=== PATIENT | female | born 1955 | race Caucasian/White ===

== ENCOUNTER 2018-11-28 00:49 | Outpatient (CLI) | payer MEDICARE, BC, SELFPAY ==
--- NOTE | 2018-11-28 12:34 | DI.RAD_ITS ---
SYMPTOMS/DIAGNOSIS: INITIAL ANNUAL WELLNESS VISIT, Z78.0, Z13.820 DEXA SCAN: Routine examination was performed. The single lateral image shows no compression fracture deformities. Evaluation of the left hip shows a total T score of -1.4 and a Z score of -0.2. This is consistent with osteopenia and an increased fracture risk. This compares with a total T score of -0.7 from 2006. Evaluation of the lumbar spine shows a total T score of -1.2 and a Z score of 0.5. This is also consistent with osteopenia and an increased fracture risk. This compares with a total T score of -0.2 from 2006. There is no evidence of osteoporosis. IMPRESSION: Osteopenia in the lumbar spine and left hip.
== END 2018-11-28 01:09 ==
PROVIDERS: PCP Internal Medicine; Visit Provider Internal Medicine
DX: M85.88 Other specified disorders of bone density and structure, other site (principal); Z78.0 Asymptomatic menopausal state; Z13.820 Encounter for screening for osteoporosis
CPT/HCPCS: 77080

== ENCOUNTER 2020-01-29 02:55 | Outpatient (CLI) | payer MEDICARE, BC, SELFPAY ==
[2020-01-29 08:08] LABS: Hemoglobin A1C 5.6 % (3.8-5.6)
[2020-01-29 08:42] LABS: ALT 86 U/L (14-59); AST 44 U/L (15-37); Alkaline Phosphatase 70 U/L (46-116); BUN 11 mg/dL (7-18); Bilirubin, Total 0.5 mg/dL (0.2-1.0); CREATININE 0.77 mg/dL (0.55-1.02); Calcium 9.1 mg/dL (8.5-10.1); Calculated LDL 54 mg/dL (<100); Chloride 103 mmol/L (98-107); Cholesterol 156 mg/dL (<200); Glucose 96 mg/dL (74-106); HDL Cholesterol 93 mg/dL (40-60); Potassium 4.2 mmol/L (3.5-5.1); Sodium 141 mmol/L (136-145); TSH (W/Ref FT4) 2.81 uIU/mL (0.36-3.74); Total Protein 7.1 g/dL (6.4-8.2); Triglyceride 48 mg/dL (<150)
== END 2020-01-29 03:15 ==
PROVIDERS: PCP Nurse Practitioner Adult Health; Visit Provider Nurse Practitioner Adult Health
DX: R73.01 Impaired fasting glucose (principal); Z83.430 Family history of elevated lipoprotein(a); R53.83 Other fatigue; R51 Headache; F43.20 Adjustment disorder, unspecified; Z13.6 Encounter for screening for cardiovascular disorders
CPT/HCPCS: 36415; 80053; 80061; 83036; 84443

== ENCOUNTER 2020-02-05 16:43 | Outpatient (REF) | payer MEDICARE, BC, SELFPAY ==
--- NOTE | 2020-02-05 14:10 | ORMUBX_PTH ---
PATIENT: Nova Lui LOC: [facility] U#:[id number] AGE/SX: 64/F ROOM: RE02/05/[address]: Niranjan Brumfield MD : 1955 BED: DIS: 02/05/2020 SPEC #: [id number] RECD: 02/05/20 18:00 STATUS: MICHEAL RENelsy #: [id number] BALBIR: 02/05/20 14:[address]: Niranjan Brumfield DEPT: Surgical Specimen RECD BY: Cate Ni ENTERED: 02/05/20 18:01 SP TYPE: ORMUBX SIOBHAN DR: Mela Calvillo APRN Tissues: 1 - MUCOSA, NOS Procedures: GROSS AND MICRO LEVEL 4 SPECIAL STAIN 1 Comments: [id number]
== END 2020-02-05 17:03 ==
LOC: LBN 16:43
PROVIDERS: PCP Nurse Practitioner Adult Health; Visit Provider Otolaryngology
DX: K13.79 Other lesions of oral mucosa (principal); K13.6 Irritative hyperplasia of oral mucosa
CPT/HCPCS: 88305; 88312

== ENCOUNTER 2020-08-09 01:17 | Outpatient (CLI) | payer MEDICARE, BC, SELFPAY ==
--- NOTE | 2020-08-09 11:10 | DI.MAMMO_ITS ---
EXAM: MG MAMMO SCREENING CLINICAL HISTORY: screening, Z12.39 TECHNIQUE: Mammograms were interpreted according to the usual protocol including computer analysis w [employer] CAD system, tomosynthesis and C-view imaging. COMPARISON: FINDINGS: The breasts are of moderate density with fairly symmetrical distribution of fibroglandular tissue. N o dominant mass or clumped microcalcification is identified in either breast. Current examination is compared with previous examinations including November 2017 and there has been no gross interval reyes ge appearance comparison previous studies. IMPRESSION: No specific evidence of malignancy at this time. Routine screening examinations are suggested at yea rly intervals in this age group according to the ACS ACR guidelines. BI-RADS Category 1 - Negative Breast Density - Category B - Scattered areas of fibroglandular density
== END 2020-08-09 01:37 ==
PROVIDERS: PCP Nurse Practitioner Adult Health; Visit Provider Nurse Practitioner Adult Health
DX: Z12.31 Encounter for screening mammogram for malignant neoplasm of breast (principal)
CPT/HCPCS: 77063; 77067

== ENCOUNTER 2020-12-31 01:13 | Outpatient (CLI) | payer MEDICARE, BC, SELFPAY ==
[2020-12-31 12:43] LABS: ALT 36 U/L (14-59); AST 22 U/L (15-37); Albumin 3.9 g/dL (3.4-5.0); Alkaline Phosphatase 48 U/L (46-116); Bilirubin, Direct 0.11 mg/dL (0.00-0.20); Bilirubin, Total 0.4 mg/dL (0.2-1.0); Total Protein 7.1 g/dL (6.4-8.2)
== END 2020-12-31 01:14 | disposition home or self-care (01) ==
LOC: LBO 01:13
PROVIDERS: PCP Nurse Practitioner Adult Health; Visit Provider Nurse Practitioner Adult Health
DX: R74.01 Elevation of levels of liver transaminase levels (principal)
CPT/HCPCS: 36415; 80076

== ENCOUNTER 2021-08-04 16:59 | Outpatient (REF) | payer MEDICARE, BC, SELFPAY ==
--- NOTE | 2021-08-04 14:50 | PAPFT_PTH ---
PATIENT: Nova Lui LOC: [facility] U#:[id number] AGE/SX: 65/F ROOM: RE08/04/[address]: Dora Collins MD : 1955 BED: DIS: 08/04/2021 SPEC #: [id number] RECD: 08/04/21 18:28 STATUS: MICHEAL REQ #: [id number] BALBIR: 08/04/21 14:[address]: Dora Collins DEPT: [facility] Cytology RECD BY: Cate Ni ENTERED: 08/04/21 18:28 SP TYPE: PAPFT OTHR DR: Mela Calvillo APRN Tissues: 1 - CX/ENDOCX FOR PAP SMEARS Procedures: PAP THIN PREP/UVM Screening HPV DNA PROBE Comments: [id number]
== END 2021-08-04 17:00 | disposition home or self-care (01) ==
LOC: LBN 16:59
PROVIDERS: PCP Nurse Practitioner Adult Health; Visit Provider Obstetrics & Gynecology
DX: N89.8 Other specified noninflammatory disorders of vagina (principal); Z12.4 Encounter for screening for malignant neoplasm of cervix; Z11.51 Encounter for screening for human papillomavirus (HPV); Z01.419 Encounter for gynecological examination (general) (routine) without abnormal findings
CPT/HCPCS: 88142; 87480; 87510; 87624; 87660

== ENCOUNTER → 2022-02-10 09:17 | Outpatient (BNVA) | payer MEDICARE, BC, SELFPAY | PROVIDERS: PCP Nurse Practitioner Adult Health; Referring Provider Nurse Practitioner Adult Health; Visit Provider Student in an Organized Health Care Education/Training Program | DX: M67.441 Ganglion, right hand (principal) | CPT/HCPCS: 99202 ==

== ENCOUNTER 2022-03-14 01:43 | Outpatient (CLI) | payer MEDICARE, BC, SELFPAY ==
[2022-03-14 09:24] LABS: Hemoglobin A1C 5.4 % (<5.7)
[2022-03-14 09:59] LABS: ALT 31 U/L (14-59); AST 22 U/L (15-37); Alkaline Phosphatase 52 U/L (46-116); Anion Gap 7.4 mmol/L (3-11); BUN 12 mg/dL (7-18); Bilirubin, Total 0.6 mg/dL (0.2-1.0); CO2 31.6 mmol/L (21.0-32.0); CREATININE 0.7 mg/dL (0.55-1.02); Calcium 8.9 mg/dL (8.5-10.1); Chloride 105 mmol/L (98-107); Glucose 95 mg/dL (74-106); Potassium 3.9 mmol/L (3.5-5.1); Sodium 144 mmol/L (136-145); Total Protein 7.2 g/dL (6.4-8.2)
[2022-03-16 05:23] LABS: Vitamin D 25 Total 36.7 ng/mL (30-100)
== END 2022-03-14 01:44 | disposition home or self-care (01) ==
LOC: LBO 01:43
PROVIDERS: PCP Nurse Practitioner Adult Health; Visit Provider Nurse Practitioner Adult Health
DX: R73.01 Impaired fasting glucose (principal); M85.80 Other specified disorders of bone density and structure, unspecified site
CPT/HCPCS: 36415; 80053; 82306; 83036

== ENCOUNTER 2022-03-28 13:19 | Day surgery (SDC) | payer MEDICARE, BC, SELFPAY ==
[2022-03-28 13:31] VITALS: BP 128/68; PULSE 78; RESP 16; TEMP 36.5; O2SAT 98
--- NOTE | 2022-03-28 15:21 | W.PM.DSUDISC ---
Discharge Plan Disposition Patient Disposition: HOME Condition: Good Discharge Details Reason For Visit: RMF Mucous Cyst Attending Provider: Adam Maurice Primary Care Provider: Mela Calvillo Home Meds and New Rx's Prescriptions: Continued triamcinolone acetonide 0.1 % cream 1 applic Topical BID PRN (Reason: eczema) 0RF Rx Instructions: apply thin layer to eczema arms & flank; avoid daily use 14 days or more cimetidine [Tagamet HB] 200 mg tablet 200 mg PO DAILY PRN0RF head relief PO 0RF Rx Instructions: herbal supplements. peminganwan PO 0RF Rx Instructions: per pt-marshallese herbal supplements. hemanth screen xanthium PO 0RF Rx Instructions: per pt-immune booster marshallese herbal supplement ascorbate calcium (vitamin C) 500 mg tablet 500 mg PO DAILY PRN0RF Metamucil (sugar) Powder 1 tbsp PO DAILY PRN0RF valacyclovir [Valtrex] 500 mg tablet 500 mg PO BID PRN Qty: 30 2RF Discharge Instructions Additional Instructions: Mucous Cyst Discharge Instructions Activity: You may use your finger for light activity. You should limit any excessive motion or forceful gripping until the sutures have been removed. Dressings: You should keep the initial surgical dressing in place for 2 days. You may remove your dressings and get the wound wet after 2 days. You should keep the wound covered with a bandaid until follow-up Medications: - You should take Tylenol and Ibuprofen around the clock as prescribed or per message and delivery service pricer's recommendations. Follow-up: 7 days for wound check and suture removal. Activity:: Elevate Remove Dressings/Wound Care:: 48 hours Shower/Bathe:: 48 hours Diet:: As Tolerated Discharge Orders Discharge Orders: Discharge Order (Routine); Ordered 03/28/22 Ordered By: Adam Maurice
[2022-03-28] MEDS: Lidocaine 1% Multi-Dose W/EPI 1/100,000 50 ML VIAL (15:32)
[2022-03-28 15:44] VITALS: BP 135/69; PULSE 65; RESP 16; TEMP 36.5; O2SAT 99
[2022-03-28] MEDS: Sodium Bicarbonate 50 MEQ/50 ML VIAL (15:49)
--- NOTE | 2022-03-28 22:09 | ROE_ITS ---
Date of service: 03/28/22 Time of Service: 15:15 Operative Note Operative Note DATE OF PROCEDURE: 03/28/22 PRE-OP DIAGNOSIS: Right Middle Finger Mucous Cyst POST-OP DIAGNOSIS: same PROCEDURE: Mucous Cyst Excision - Right Middle Finger SURGEON: Adam Maurice ANESTHESIA TYPE: Local By Surgeon Refer to Anesthesia Record ESTIMATED BLOOD LOSS: 5 PATHOLOGY: none sent COMPLICATIONS: None Patient was transported to: same day Patient's condition: stable Indications: I have seen Josefa in clinic for symptoms of a digital mucous cyst. The mass persisted and caused pain to direct contact and with use. The diagnosis of a mucous cyst was made. The symptoms had not responded to conservative measures. I discussed cyst excision with the patient. I reviewed the risks of the procedure to include, but not limited to, bleeding, infection, pain, stiffness, recurrence, damage to nerves or vessels. Despite these risks, the patient elected to proceed. Findings: There was a cyst of the distal phalanx, arising from the DIP joint. The cyst and its capsule was removed and an arthrotomy at the cyst location performed along with removal of prominent osteophyte. Procedure Description: Josefa was greeted in the preoperative holding area where the correct side was identified and marked. The consent was reviewed with the patient and signed. All questions were answered. Josefa was taken back to the operating room. The patient was placed into the supine position on the operating room table with the right arm on an arm board. All bony prominences were well padded. No prophylactic antibiotics were administered since this was a clean, elective hand surgical case. The right arm was then prepped with Chloraprep and draped in a standard fashion with stockinette and extremity drape. A timeout to confirm correct identity, side and site, procedure, allergies, anesthesia, and medical concerns was performed. A digital block was then performed using 1% lidocaine with epinephrine and buffered with sodium bicarbonate. This was allowed time to set up completely and was tested before proceeding with the case. A longitudinal incision was then made overlying the cyst. The skin was incised sharply. Full-thickness flaps were then elevated to expose the cyst. The cyst capsule was then removed with a rongeur and followed back towards the DIP joint. Using the rongeur and a [place] I was able to penetrate into the DIP joint creating a small arthrotomy from the origin of the mucous cyst. There was prominent osteophyte at this location which was also removed. The finger was irrigated and once again checked to make sure that all components of the cyst were removed. The skin was then closed using a #4-0 nylon in interrupted fashion. The finger was dressed with Xeroform, 4 x 4, conformer dressing. The patient tolerated the procedure well and was returned to the Same Day Surgery area in a stable condition suffering no known complication.
== END 2022-03-28 16:05 | disposition home or self-care (01) ==
PROVIDERS: PCP Nurse Practitioner Adult Health; Visit Provider Student in an Organized Health Care Education/Training Program
PROC: (CPT 26160; principal; 2022-03-28 16:30)
DX: M67.441 Ganglion, right hand (principal)
CPT/HCPCS: 26160

== ENCOUNTER → 2022-04-05 10:26 | Outpatient (BNVA) | payer MEDICARE, BC, SELFPAY | PROVIDERS: PCP Nurse Practitioner Adult Health; Referring Provider Nurse Practitioner Adult Health; Visit Provider Physician Assistant Surgical | DX: M67.441 Ganglion, right hand (principal) ==

== ENCOUNTER 2022-10-09 11:14 | Outpatient (CLI) | payer MEDICARE, BC, SELFPAY ==
--- NOTE | 2022-10-09 11:00 | DI.RAD_ITS ---
Exam(s) XR KNEE LT 4V AP,LAT,DAWSON,PAT EXAM: XR KNEE LT 4V AP,LAT,DAWSON,PAT CLINICAL HISTORY: left knee pain. TECHNIQUE: 2D digital imaging was performed. Three views. COMPARISON: No exams were available for comparison FINDINGS: BONES: No acute fracture is present. No bony destructive lesion is seen. JOINTS: The knee is normally aligned. No joint effusion is seen. The joint spaces are maintained. T here is minimal periarticular spurring. SOFT TISSUE: Normal. IMPRESSION: Minimal degenerative changes. DATA REPOSITORY: RADIATION DOSE DELIVERED:
== END 2022-10-09 11:15 | disposition home or self-care (01) ==
LOC: DIORS 11:15
PROVIDERS: PCP Nurse Practitioner Adult Health; Referring Provider Nurse Practitioner Adult Health; Visit Provider Physician Assistant
DX: M17.12 Unilateral primary osteoarthritis, left knee; M70.52 Other bursitis of knee, left knee
CPT/HCPCS: 99213; 73564

== ENCOUNTER 2023-03-05 01:38 | Outpatient (CLI) | payer MEDICARE, BC, SELFPAY ==
[2023-03-05 11:53] LABS: ALT 35 U/L (14-59); AST 21 U/L (15-37); Alkaline Phosphatase 50 U/L (46-116); Anion Gap 1.9 mmol/L (3-11); BUN 16 mg/dL (7-18); Bilirubin, Total 0.3 mg/dL (0.2-1.0); CO2 34.1 mmol/L (21.0-32.0); CREATININE 0.9 mg/dL (0.55-1.02); Calcium 9.5 mg/dL (8.5-10.1); Chloride 102 mmol/L (98-107); Glucose 95 mg/dL (74-106); Hemoglobin A1C 5.5 % (<5.7); Sodium 138 mmol/L (136-145); Total Protein 7.5 g/dL (6.4-8.2)
== END 2023-03-05 01:39 | disposition home or self-care (01) ==
LOC: LBO 01:39
PROVIDERS: PCP Nurse Practitioner Adult Health; Referring Provider Nurse Practitioner Adult Health; Visit Provider Nurse Practitioner Adult Health
DX: R73.01 Impaired fasting glucose (principal)
CPT/HCPCS: 36415; 80053; 83036

== ENCOUNTER 2023-04-03 01:33 | Outpatient (CLI) | payer MEDICARE, BC, SELFPAY ==
--- NOTE | 2023-04-03 07:30 | DI.MAMMO_ITS ---
Exam(s) MAMMO SCREENING EXAM: MAMMO SCREENING CLINICAL HISTORY: screening,z12.39. TECHNIQUE: Bilateral full field digital CC and MLO mammographic images were obtained with 3D tomosyn thesis and utilizing computer aided detection (CAD). COMPARISON: Prior mammograms dating back to 2012 were reviewed. FINDINGS: There has been no significant change in the appearance and distribution of the fibroglandular tissue. There are no CAD designations. Small benign-appearing nodule in the right breast is unchanged from prior studies and has appearance of a benign intramammary lymph node. Unchanged from 2012. There are no new spiculated masses nor malignant-appearing microcalcification groups in either breast . There is no significant architectural distortion nor skin thickening-retraction. IMPRESSION: No radiographic evidence of malignancy. Stable benign-appearing findings. BI-RADS Category 1 - Negative Breast Density - Category B - Scattered areas of fibroglandular density Breast density Category C or D implies that the patient has dense breast tissue. Dense breast tissue can make it harder to find cancer on a mammogram. Dense breast tissue is also associated with an incr eased risk of breast cancer. This information about the result of the mammogram report was provided to the patient to raise their awareness. Use this report when you speak with the patient about their risks for breast cancer, which includes their family history. At that time, you may recommend additional screening tests (Ultrasoun d or MRI) as these tests may add significant information. A negative radiographic report should not delay biopsy if a dominant or clinically suspicious mass is present. Up to ten percent of cancers are not identified on mammography. A negative report may reinforce clinical impression. Adenosis and dense breasts may obscure an underlying neoplasm. False positive reports average 6 to 10%. Patient will receive a letter notifying them of these results.
== END 2023-04-03 01:53 ==
LOC: DI 01:33
PROVIDERS: PCP Nurse Practitioner Adult Health; Visit Provider Nurse Practitioner Adult Health
DX: Z12.31 Encounter for screening mammogram for malignant neoplasm of breast (principal)
CPT/HCPCS: 77063; 77067

== ENCOUNTER 2024-02-26 04:55 | Outpatient (CLI) | payer MEDICARE, BC, SELFPAY ==
[2024-02-26 10:09] LABS: Hemoglobin A1C 5.4 % (<5.7)
[2024-02-26 10:32] LABS: ALT 32 U/L (14-59); AST 25 U/L (15-37); Albumin 3.7 g/dL (3.4-5.0); Alkaline Phosphatase 48 U/L (46-116); Anion Gap 9.4 mmol/L (3-11); BUN 12 mg/dL (7-18); Bilirubin, Total 0.5 mg/dL (0.2-1.0); CO2 27.6 mmol/L (21.0-32.0); CREATININE 0.8 mg/dL (0.55-1.02); Chloride 106 mmol/L (98-107); Estimated GFR 79.22 (mL/min/1.73m2); Glucose 89 mg/dL (74-106); Potassium 3.7 mmol/L (3.5-5.1); Sodium 143 mmol/L (136-145); Total Protein 7.2 g/dL (6.4-8.2)
[2024-02-26 11:11] LABS: Vitamin D 25 Total 70.7 ng/mL (30-100)
== END 2024-02-26 04:56 | disposition home or self-care (01) ==
PROVIDERS: PCP Nurse Practitioner Adult Health; Visit Provider Nurse Practitioner Adult Health
DX: M85.89 Other specified disorders of bone density and structure, multiple sites (principal); R73.01 Impaired fasting glucose
CPT/HCPCS: 36415; 80053; 82306; 83036

== ENCOUNTER 2024-06-11 11:34 | Outpatient (CLI) | payer MEDICARE, BC, SELFPAY ==
--- NOTE | 2024-06-11 09:15 | DI.RAD_ITS ---
Exam(s) XR SHOULDER LT COMPLETE 2+V EXAM: XR SHOULDER LT COMPLETE 2+V CLINICAL HISTORY: LEFT SHOULDER PAIN. TECHNIQUE: 2D digital imaging was performed. COMPARISON: No exams were available for comparison FINDINGS: Two views. No evidence of fracture or dislocation nor diminution of the subacromial space. No obvious degenerat shahab changes in the glenohumeral joint. However, there is a small 3 x 1 mm soft tissue calcification adjacent to the greater tuberosity consistent with calcific rotator cuff tendinitis. Bone density no rmal. No osseous lesions. Clavicle appears unremarkable. AC joint exhibits mild degenerative [place] es. IMPRESSION: There is a 3 x 1 mm calcification in the soft tissues adjacent to the greater tuberosity of the humer us. Consistent with calcific rotator cuff tendinitis. DATA REPOSITORY: RADIATION DOSE DELIVERED:
--- NOTE | 2024-06-11 09:30 | DI.RAD_ITS ---
Exam(s) XR SHOULDER RT COMPLETE 2+V EXAM: XR SHOULDER RT COMPLETE 2+V CLINICAL HISTORY: RIGHT SHOULDER PAIN. TECHNIQUE: 2D digital imaging was performed. COMPARISON: CR XR SHOULDER LT COMPLETE 2+V from 06/11/2024 FINDINGS: Two views. No evidence of fracture or dislocation nor diminution of the subacromial space. There is no soft tis peggy calcification on this side. No obvious degenerative changes in the glenohumeral joint. Mild deg enerative changes in the AC joint. Bone density normal. No osseous lesions. IMPRESSION: No significant osseous findings in the right shoulder. No abnormal soft tissue calcifications. DATA REPOSITORY: RADIATION DOSE DELIVERED:
== END 2024-06-11 11:35 | disposition home or self-care (01) ==
LOC: DIORS 11:35
PROVIDERS: PCP Nurse Practitioner Adult Health; Referring Provider Nurse Practitioner Adult Health; Visit Provider Student in an Organized Health Care Education/Training Program
DX: M75.102 Unspecified rotator cuff tear or rupture of left shoulder, not specified as traumatic
CPT/HCPCS: 99213; 73030

== ENCOUNTER 2024-07-21 14:04 | Outpatient (CLI) | payer MEDICARE, BC, SELFPAY ==
--- NOTE | 2024-07-21 11:47 | DI.RAD_ITS ---
Exam(s) XR HAND RT COMPLETE EXAM: XR HAND RT COMPLETE CLINICAL HISTORY: CYST RIGHT INDEX FINGER. TECHNIQUE: 2D digital imaging was performed. COMPARISON: No exams were available for comparison FINDINGS: 3 views No evidence of acute fracture. There is joint space narrowing and mild subluxation at the 2nd metaca rpophalangeal joint. There are also degenerative changes at the DIP joints of the 2nd and 3rd fingers. Osteophytes at the se levels noted including dorsal osteophytes, consistent with Heberden's nodes. Similar finding also seen at the DIP joint level of the 5th finger. 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 There is sparing of the DIP arjun nt of the 4th-ring finger. Other findings as above. DATA REPOSITORY: RADIATION DOSE DELIVERED:
== END 2024-07-21 14:05 | disposition home or self-care (01) ==
LOC: DIORS 14:04
PROVIDERS: PCP Nurse Practitioner Adult Health; Referring Provider Nurse Practitioner Adult Health; Visit Provider Student in an Organized Health Care Education/Training Program
DX: M19.041 Primary osteoarthritis, right hand
CPT/HCPCS: 99213; 73130

== ENCOUNTER 2025-08-12 13:30 | Outpatient (CLI) | payer MEDICARE, BC, SELFPAY ==
--- NOTE | 2025-08-12 12:25 | DI.RAD_ITS ---
Exam(s) XR WRIST LT COMP NAVICULAR EXAM: XR WRIST LT COMP NAVICULAR CLINICAL HISTORY: Left wrist pain after fall on outstretched hand, M25.539. TECHNIQUE: 2D digital imaging was performed of the left wrist. Four images were obtained. Scaphoid, PA, oblique and lateral views were obtained. COMPARISON: There are no priors for comparison. FINDINGS: BONES: No acute fracture is present. No bony destructive lesion is seen. JOINTS: The carpal bones are normally aligned. There are marked degenerative changes seen at the 1st CMC joint characterized by joint space narrowing and osteophytes. SOFT TISSUE: Normal. IMPRESSION: There is no acute fracture or dislocation. DATA REPOSITORY: RADIATION DOSE DELIVERED:
== END 2025-08-12 13:50 ==
LOC: DI 09-25 13:30
PROVIDERS: PCP Nurse Practitioner Adult Health; Visit Provider Family Medicine
DX: M25.532 Pain in left wrist (principal)
CPT/HCPCS: 73110

== ENCOUNTER 2025-08-24 04:18 | Outpatient (CLI) | payer MEDICARE, SELFPAY ==
[2025-08-24 08:58] LABS: Anion Gap 8.7 mmol/L (3-11); BUN 13 mg/dL (7-18); CO2 29.3 mmol/L (21.0-32.0); Calcium 9.3 mg/dL (8.5-10.1); Calculated LDL 61 mg/dL (<100); Chloride 104 mmol/L (98-107); Cholesterol 170 mg/dL (<200); Estimated GFR 78.72 (mL/min/1.73m2); Glucose 102 mg/dL (74-106); HDL Cholesterol 100 mg/dL (>or=50); Potassium 4.2 mmol/L (3.5-5.1); Sodium 142 mmol/L (136-145); Triglyceride 45 mg/dL (<150)
[2025-08-24 09:28] LABS: Hemoglobin A1C 5.3 % (<5.7)
== END 2025-08-24 04:19 | disposition home or self-care (01) ==
PROVIDERS: Absent Provider Nurse Practitioner Adult Health; PCP Nurse Practitioner Adult Health; Referring Provider Nurse Practitioner Adult Health; Visit Provider Nurse Practitioner Adult Health
DX: R73.01 Impaired fasting glucose (principal); Z13.1 Encounter for screening for diabetes mellitus; Z13.220 Encounter for screening for lipoid disorders; Z13.6 Encounter for screening for cardiovascular disorders
CPT/HCPCS: 36415; 80048; 80061; 83036

== ENCOUNTER → 2025-10-27 00:26 | Outpatient (CLI) | payer MEDICARE, BC, SELFPAY ==
--- NOTE | 2025-10-27 12:12 | DI.MAMMO_ITS ---
Exam(s) MAMMO SCREENING EXAM: MAMMO SCREENING CLINICAL HISTORY: screening,Z12.39. TECHNIQUE: Bilateral full field digital CC and MLO mammographic images were obtained with 3D tomosynthesis and utilizing computer aided detection (CAD). COMPARISON: Prior mammograms were reviewed. FINDINGS: There are no CAD designations. Small benign-appearing nodule in the right breast is unchanged from 2016 and has the appearance of benign intramammary lymph node. However, in the opposite-left breast there is a new noncalcified lobulated 5 millimeter nodule located 8 cm in from the nipple on the CC view, lateral of center. Requires further imaging. No malignant-appearing microcalcification groups is region or elsewhere in either breast. There is no significant architectural distortion nor skin thickening-retraction. IMPRESSION: 1. No radiographic evidence of malignancy in the right breast. 2. New left breast nodule best seen on the CC view, lateral of center. Spot compression view and ultrasound recommended. BI-RADS Category 0 - Incomplete: Need additional imaging evaluation Breast Density - Category B - There are scattered areas of fibroglandular density. Breast density Category C or D implies that the patient has dense breast tissue. Dense breast tissue can make it harder to find cancer on a mammogram. Dense breast tissue is also associated with an increased risk of breast cancer. This information about the result of the mammogram report was provided to the patient to raise their awareness. Use this report when you speak with the patient about their risks for breast cancer, which includes their family history. At that time, you may recommend additional screening tests (Ultrasound or MRI) as these tests may add significant information. A negative radiographic report should not delay biopsy if a dominant or clinically suspicious mass is present. Up to ten percent of cancers are not identified on mammography. A negative report may reinforce clinical impression. Adenosis and dense breasts may obscure an underlying neoplasm. False positive reports average 6 to 10%. Patient will receive a letter notifying them of these results.
== END ==
LOC: DI 00:27
PROVIDERS: PCP Nurse Practitioner Adult Health; Visit Provider Nurse Practitioner Adult Health
DX: Z12.31 Encounter for screening mammogram for malignant neoplasm of breast (principal); N63.25 Unspecified lump in the left breast, overlapping quadrants
CPT/HCPCS: 77063; 77067

== ENCOUNTER → 2025-11-02 00:29 | Outpatient (CLI) | payer MEDICARE, BC, SELFPAY ==
--- NOTE | 2025-11-02 | DI.MAMMO_ITS ---
Exam(s) MAMMO SCREEN CALL BACK UNI EXAM: MAMMO SCREEN CALL BACK UNI CLINICAL HISTORY: NEW LT BREAST NODULE LATERAL OF CENTER R92.8 ABNL MAMMO TECHNIQUE: Spot compression views with tomographic imaging were performed. COMPARISON: 2015 through recent exam 27 October 2025 FINDINGS: Cc spot compression view was performed of the lateral left breast. There is a small persistent nodule consistent with an intramammary lymph node.No suspicious masses or suspicious microcalcifications are seen. IMPRESSION: BI-RADS Category 1, Negative Yearly screening mammography is recommended. Breast Density - Category B - There are scattered areas of fibroglandular density. Breast density Category C or D implies that the patient has dense breast tissue. Dense breast tissue can make it harder to find cancer on a mammogram. Dense breast tissue is also associated with an increased risk of breast cancer. This information about the result of the mammogram report was provided to the patient to raise their awareness. Use this report when you speak with the patient about their risks for breast cancer, which includes their family history. At that time, you may recommend additional screening tests (Ultrasound or MRI) as these tests may add significant information. A negative radiographic report should not delay biopsy if a dominant or clinically suspicious mass is present. Up to ten percent of cancers are not identified on mammography. A negative report may reinforce clinical impression. Adenosis and dense breasts may obscure an underlying neoplasm. False positive reports average 6 to 10%. Patient will receive a letter notifying them of these results.
== END ==
LOC: DI 00:29
PROVIDERS: PCP Nurse Practitioner Adult Health; Visit Provider Nurse Practitioner Adult Health
DX: Z12.31 Encounter for screening mammogram for malignant neoplasm of breast (principal); R92.8 Other abnormal and inconclusive findings on diagnostic imaging of breast
CPT/HCPCS: 77063; 77067